=== PATIENT | female | born 1945 | race Caucasian/White ===

== ENCOUNTER → 2016-10-26 | Outpatient (CLI) | payer MEDICARE ==
[~2016-10-26] MED LIST: ADULT LOW DOSE81 M1 PO; ADVAIR 100-501 EACH IH; ALBUTEROL17 G1 IH; ALENDRONATE SOD70 MG PO; AMBIEN10 MG PO; AMLODIPINE BESY10 MG PO; AMPHETAMINE SAL10 MG PO; CALTRATE 600600 MG PO; CATAPRES0.1 MG PO; CRESTOR20 MG PO; DIOVAN320 MG PO; EFFEXOR75 MG PO; FISH OIL PO; GLIPIZIDE PO; GLUCOTROL XL2.5 MG PO; IBUPROFEN800 MG PO; INDERAL LA120 MG PO; LOSARTAN POTAS100 MG PO; LOVASTATIN10 MG PO; LYRICA50 MG PO; METOPROLOL SUCC50 MG PO; MIRTAZAPINE15 MG PO; OMEGA 3 1,0001 EAC1 PO; PRILOSEC20 MG PO; PRIMIDONE50 MG PO; PRINZIDE 20-121 EACH PO; PROVENTIL,2.5 MG/3 M IH; SPIRIVA1 INHALATI IH; TEMAZEPAM15 MG PO; THERA1 EACH PO; VENTOLIN HFA18 GM IH; VITAMIN D1000 INTUN PO
== END | disposition home or self-care (01) ==
LOC: CDC 15:29
DX: Z01.810 Encounter for preprocedural cardiovascular examination (principal); I49.9 Cardiac arrhythmia, unspecified; R94.31 Abnormal electrocardiogram [ECG] [EKG]
CPT/HCPCS: 93000